=== PATIENT | female | born 1965 | race Caucasian/White ===

== ENCOUNTER 2017-11-27 19:00 | Outpatient (CLI) | payer OTHER ==
[2013-10-02 05:56] VITALS: BMI 36.3
[~2017-11-27 19:00] MED LIST: CARDURA2 MG PO; CARDURA8 MG; COREG25 MG PO; DIOVAN40 MG PO; ESTRACE1 MG PO; PERCOCET 5-3251 TAB PO; PROVERA10 MG PO
== END 2017-11-27 23:59 | disposition home or self-care (01) ==
LOC: D.MAMMO 19:00
DX: Z12.31 Encounter for screening mammogram for malignant neoplasm of breast (principal)

== ENCOUNTER 2018-11-30 08:00 | Outpatient (CLI) | payer OTHER ==
[2013-10-02 05:56] VITALS: BMI 36.3
== END 2018-11-30 09:00 | disposition home or self-care (01) ==
LOC: D.MAMMO 08:00
PROVIDERS: ATTEND Nurse Practitioner Family
DX: Z12.31 Encounter for screening mammogram for malignant neoplasm of breast (principal)

== ENCOUNTER 2019-12-03 08:00 | Outpatient (CLI) | payer OTHER ==
[2013-10-02 05:56] VITALS: BMI 36.3
== END 2019-12-03 16:06 | disposition home or self-care (01) ==
LOC: D.MAMMO 08:00
PROVIDERS: ATTEND Obstetrics & Gynecology
DX: Z12.31 Encounter for screening mammogram for malignant neoplasm of breast (principal)